=== PATIENT | female | born 1955 | race Caucasian/White ===

== ENCOUNTER → 2018-05-02 | Outpatient (CLI) | payer MEDICARE, MEDICAID ==
[~2018-05-02] MED LIST: CLOP75TA52 PO; GABA800T PO; PIOG15TA22 PO; QUIN20TA17 PO; ROSU40TA PO
[2018-05-02 11:13] LABS: HCT (SEDRATE) 43.4 % (34.6-47.8)
[2018-05-04 08:10] LABS: ANA SCREEN POSITIVE (Negative)
[2018-05-04 08:11] LABS: ANTI-NUCLEAR ANTIBODY PATTERN HOMOGENOUS
== END | disposition home or self-care (01) ==
LOC: LAB 10:53
PROVIDERS: ATTEND Internal Medicine
DX: M06.4 Inflammatory polyarthropathy (principal); M19.90 Unspecified osteoarthritis, unspecified site; G89.4 Chronic pain syndrome
CPT/HCPCS: 36415; 85651; 86038; 86039; 86140; 86430

== ENCOUNTER 2018-07-28 07:57 | Emergency (ER) | payer MEDICARE, MEDICAID ==
[~2018-07-28] VITALS: Ht 160 cm; Wt 84.4 kg
[2018-07-28 09:10] VITALS: BP 140/53
== END 2018-07-28 10:09 | disposition home or self-care (01) ==
LOC: ED 09:32
DX: G57.32 Lesion of lateral popliteal nerve, left lower limb (principal); E11.9 Type 2 diabetes mellitus without complications; I25.2 Old myocardial infarction; G62.9 Polyneuropathy, unspecified; F12.10 Cannabis abuse, uncomplicated; Z87.891 Personal history of nicotine dependence
CPT/HCPCS: 82962; 99284